=== PATIENT | male | born 1940 | race Caucasian/White ===

== ENCOUNTER 2017-08-27 00:08 | Inpatient (IN) | payer OTHER, MEDICARE, MEDICAID ==
[2017-08-27] VITALS (7 sets, daily range): BP systolic 131–167; BP diastolic 87–104
[~2017-08-27] VITALS: Ht 5535.5 cm; Wt 79.0 kg
[~2017-08-27 00:08] MED LIST: ASPI-1265 PO; FLO0.4C PO; LOP25T PO; LOSA25TA96 PO; POLY17PO10 PO
[2017-08-27 00:43] LABS: BASOPHILS # (AUTO) 0.1 X10'3 (0-0.2); BASOPHILS % (AUTO) 0.5 % (0-1); EOSINOPHILS # (AUTO) 0.3 X10'3 (0-0.9); EOSINOPHILS % (AUTO) 2.8 % (0-6); HEMATOCRIT 41.9 % (42.0-52.0); LYMPHOCYTES # (AUTO) 5.7 X10'3 (1.1-4.8); LYMPHOCYTES % (AUTO) 56.3 % (21-51); MEAN CORPUSCULAR HEMOGLOBIN 31.1 PG (27.0-31.0); MEAN CORPUSCULAR HGB CONC 33.5 % (33.0-36.5); MEAN PLATELET VOLUME 8.4 FL (7.4-10.4); MONOCYTES # (AUTO) 0.9 X10'3 (0-0.9); MONOCYTES % (AUTO) 8.5 % (2-12); NEUTROPHILS # (AUTO) 3.2 X10'3 (1.8-7.7); NEUTROPHILS % (AUTO) 31.9 % (42-75); PLATELET COUNT 206 X10'3 (140-440); RED CELL DISTRIBUTION WIDTH 14.8 % (11.5-14.5); WHITE BLOOD COUNT 10.1 X10'3 (4.5-11.0)
[2017-08-27 00:59] LABS: ALANINE AMINOTRANSFERASE 37 U/L (12-78); ALBUMIN 3.7 G/DL (3.4-5.0); ALKALINE PHOSPHATASE 74 IU/L (46-116); ANION GAP 5 (8-16); ASPARTATE AMINO TRANSFERASE 21 U/L (10-37); BILIRUBIN,TOTAL 0.6 MG/DL (0.1-1.0); BLOOD UREA NITROGEN 10 MG/DL (7-18); CALCIUM 8.9 MG/DL (8.5-10.1); CHLORIDE 103 MMOL/L (99-107); ETHANOL < 0.010 GM/DL (0.0-0.010); GLUCOSE 98 MG/DL (70-104); MAGNESIUM 1.7 MG/DL (1.5-2.4); POTASSIUM 4.2 MMOL/L (3.5-5.1); SODIUM 136 MMOL/L (135-145); TOTAL CARBON DIOXIDE 28.1 MMOL/L (24-32); TOTAL PROTEIN 7.3 G/DL (6.4-8.2); eGFR 73 ML/MIN
[2017-08-27] MEDS ORDERED: iohexol 350MG/ML 100ml bottle IV ONE (00:59)
[2017-08-27 01:03] LABS: PARTIAL THROMBOPLASTIN TIME 26 SECONDS (22-32)
[2017-08-27] MEDS ORDERED: acetaminophen 325mg tablet PO PRN (03:10)
[2017-08-27] MEDS ORDERED: diphenhydrAMINE 25mg capsule PO PRN (03:10)
[2017-08-27] MEDS ORDERED: mag hydrox/Alum hydrox/simeth 30ml oral suspension PO PRN (03:10)
[2017-08-27] MEDS ORDERED: ondansetron/PF 4mg/2ml inj IV PRN (03:10)
[2017-08-27] MEDS ORDERED: metoclopramide 5 mg/ml inj IV PRN (03:10)
[2017-08-27] MEDS ORDERED: magnesium hydroxide 30ml (MOM) UD suspension PO PRN (03:10)
[2017-08-27] MEDS ORDERED: diphenhydrAMINE 50 mg/ml inj IV PRN (03:10)
[2017-08-27] MEDS ORDERED: bisacodyl 10mg suppository rectal RC PRN (03:10)
[2017-08-27] MEDS ORDERED: HYDROcodone/acetaminophen 5mg/325mg tablet PO PRN (03:10)
[2017-08-27] MEDS ORDERED: HYDROcodone/acetaminophen 10/325mg tab PO PRN (03:10)
[2017-08-27] MEDS: normal saline 1000ml 1,000 ML IV SCH (03:25)
[2017-08-27 03:56] LABS: CLARITY,URINE CLEAR (Clear); COLOR,URINE YELLOW (Yellow); GLUCOSE, URINE NEGATIVE (Neg); KETONES,URINE NEGATIVE (Neg); LEUKOCYTE ESTERASE ,URINE NEGATIVE (Neg); NITRITES, URINE NEGATIVE (Neg); OCCULT BLOOD,URINE NEGATIVE (Neg); PROTEIN,URINE NEGATIVE (Neg); UROBILINOGEN,URINE 0.2 E.U/dL (0.2-1.0)
[2017-08-27 04:07] LABS: UA COLLECTION TYPE STRAIGHT CATH; URINE AMPHETAMINE SCREEN NEGATIVE (Neg); URINE BARBITUATE SCREEN NEGATIVE (Neg); URINE BENZODIAZEPINES SCREEN NEGATIVE (Neg); URINE CANNABINOID SCREEN NEGATIVE (Neg); URINE COCAINE SCREEN NEGATIVE (Neg); URINE METHADONE SCREEN NEGATIVE (Neg); URINE OPIATE SCREEN NEGATIVE (Neg); URINE PHENCYCLIDINE SCREEN NEGATIVE (Neg)
[2017-08-27] MEDS ORDERED: pantoprazole 40mg Tablet.DR PO SCH (07:30)
[2017-08-27] MEDS: docusate sod 100mg capsule PO SCH ×2 (08:00→20:00)
[2017-08-27] MEDS: atorvastatin 10mg tablet PO SCH (08:00)
[2017-08-27] MEDS ORDERED: heparin, porcine 5000 units/ml vial SQ SCH ×2 (08:00→20:00)
[2017-08-27] MEDS: aspirin 81mg tab.chew PO SCH (08:00)
[2017-08-27] MEDS: tamsulosin 0.4mg capsule PO SCH (08:00)
[2017-08-27] MEDS ORDERED: OMEP20CA10 PO ×2 (11:00→11:09)
[2017-08-27] MEDS ORDERED: CEPH500C2 PO (11:00)
[2017-08-27] MEDS ORDERED: FINA5TAB11 PO (11:00)
[2017-08-27] MEDS ORDERED: LOSA25TA96 PO (11:01)
[2017-08-27] MEDS ORDERED: IPRA30SP (11:09)
[2017-08-27] MEDS ORDERED: FAMO-128 PO (11:09)
[2017-08-27] MEDS ORDERED: BUDE10.2 INH (11:09)
[2017-08-27] MEDS ORDERED: METO25TA6 PO (11:09)
[2017-08-27] MEDS ORDERED: LOSA100T28 PO (11:09)
[2017-08-27] MEDS: albuterol 2.5 MG/3 ML nebule NEB PRN (12:48)
[2017-08-27] MEDS ORDERED: ipratropium 0.03% 30ML nasal spray NS PRN (12:50)
[2017-08-27] MEDS: heparin, porcine 5000 units/ml vial SQ SCH ×2 (13:50→20:34)
[2017-08-27] MEDS ORDERED: metoprolol tartrate 25mg tablet PO SCH ×2 (16:25→20:00)
[2017-08-27] MEDS: cloNIDine 0.1 MG/24 HOUR patch (7 day patch) TD SCH (17:42)
[2017-08-27 17:43] LABS: CLARITY,URINE Clear (Clear); COLOR,URINE Yellow (Yellow); GLUCOSE, URINE Negative (Neg); KETONES,URINE >=160 mg/dl (Neg); LEUKOCYTE ESTERASE ,URINE Moderate (Neg); NITRITES, URINE Negative (Neg); OCCULT BLOOD,URINE Large (Neg); PH,URINE 5.5 (4.8-8.0); PROTEIN,URINE 30 mg/dl (Neg)
[2017-08-27 17:52] LABS: UA COLLECTION TYPE FOLEY CATH
[2017-08-27 17:53] LABS: WBC,URINE 20-30 /HPF (0-4)
[2017-08-27 17:54] LABS: BACTERIA,URINE 1+ /HPF (Neg); RBC,URINE 20-50 /HPF (0-2)
[2017-08-27 17:56] LABS: MUCUS STRANDS NONE SEEN /LPF (Neg); SQUAMOUS EPITHELIAL CELL,UR NONE SEEN /LPF (FEW)
[2017-08-27] MEDS ORDERED: temazepam 15mg capsule PO PRN (21:00)
[2017-08-28] VITALS (10 sets, daily range): BP systolic 134–187; BP diastolic 77–150
[2017-08-28] MEDS ORDERED: normal saline 500ml IV soln 500 ML IV ONE (01:20)
[2017-08-28] MEDS: acetaminophen 650mg rectal suppository RC PRN ×2 (01:20→09:36)
[2017-08-28] MEDS ORDERED: diltiazem 5mg/ml 5ml inj. IV ONE ×2 (01:45→02:30)
[2017-08-28] MEDS: normal saline 1000ml 1,000 ML IV SCH ×2 (03:39→15:07)
[2017-08-28 06:33] LABS: BASOPHILS # (AUTO) 0.1 X10'3 (0-0.2); BASOPHILS % (AUTO) 0.7 % (0-1); EOSINOPHILS # (AUTO) 0.1 X10'3 (0-0.9); EOSINOPHILS % (AUTO) 0.9 % (0-6); HEMATOCRIT 40.4 % (42.0-52.0); HEMOGLOBIN 13.6 g/dl (14.0-17.9); LYMPHOCYTES # (AUTO) 2.8 X10'3 (1.1-4.8); MEAN CORPUSCULAR HEMOGLOBIN 31.2 PG (27.0-31.0); MEAN CORPUSCULAR HGB CONC 33.6 % (33.0-36.5); MEAN CORPUSCULAR VOLUME 92.7 FL (78-98); MEAN PLATELET VOLUME 9.3 FL (7.4-10.4); MONOCYTES # (AUTO) 1.4 X10'3 (0-0.9); MONOCYTES % (AUTO) 9.2 % (2-12); NEUTROPHILS % (AUTO) 71.2 % (42-75); PLATELET COUNT 210 X10'3 (140-440); RED BLOOD COUNT 4.35 X10'6 (4.70-6.10); RED CELL DISTRIBUTION WIDTH 14.2 % (11.5-14.5); WHITE BLOOD COUNT 15.4 X10'3 (4.5-11.0)
[2017-08-28 06:54] LABS: ALANINE AMINOTRANSFERASE 35 U/L (12-78); ALBUMIN 3.6 G/DL (3.4-5.0); ALKALINE PHOSPHATASE 69 IU/L (46-116); ANION GAP 12 (8-16); ASPARTATE AMINO TRANSFERASE 22 U/L (10-37); BILIRUBIN,TOTAL 1.4 MG/DL (0.1-1.0); BLOOD UREA NITROGEN 6 MG/DL (7-18); BUN/CREATININE RATIO 6.2 (5.4-32.0); CHLORIDE 101 MMOL/L (99-107); CHOL/HDL RATIO 2.2 (0.00-4.99); CHOLESTEROL 150 MG/DL (0-200); CREATININE 0.97 MG/DL (0.60-1.10); GLUCOSE 128 MG/DL (70-104); HDL CHOLESTEROL 68 MG/DL (35-60); LDL CHOLESTEROL 82 MG/DL (50-100); POTASSIUM 4.2 MMOL/L (3.5-5.1); SODIUM 137 MMOL/L (135-145); TOTAL CARBON DIOXIDE 24.3 MMOL/L (24-32); TOTAL PROTEIN 7.1 G/DL (6.4-8.2); TRIGLYCERIDES 63 MG/DL (20-135); eGFR 75 ML/MIN
[2017-08-28] MEDS: pantoprazole 40mg Tablet.DR PO SCH (07:30)
[2017-08-28] MEDS: lactobacillus rhamnosus 10,000 MMU CELLS/CAPSULE PO SCH ×2 (07:30→17:30)
[2017-08-28] MEDS: fluticasone/vilanterol 200mcg/25mcg inhaler IH SCH ×2 (07:56→08:02)
[2017-08-28] MEDS: finasteride 5mg tablet PO SCH (08:00)
[2017-08-28] MEDS: aspirin 81mg tab.chew PO SCH (08:00)
[2017-08-28] MEDS: metoprolol tartrate 25mg tablet PO SCH ×2 (08:00→19:08)
[2017-08-28] MEDS: losartan 50mg tablet PO SCH (08:00)
[2017-08-28] MEDS: tamsulosin 0.4mg capsule PO SCH (08:00)
[2017-08-28] MEDS: docusate sod 100mg capsule PO SCH ×2 (08:00→19:08)
[2017-08-28] MEDS: atorvastatin 10mg tablet PO SCH (08:00)
[2017-08-28] MEDS: heparin, porcine 5000 units/ml vial SQ SCH ×2 (08:10→20:11)
[2017-08-28] MEDS: cefTRIAXone 1g/NS 100ml IVPB 100 ML IV SCH (08:10)
[2017-08-28] MEDS ORDERED: LORazepam 2 mg/ml vial IM ONE (16:05)
[2017-08-28] MEDS ORDERED: LORazepam 2 mg/ml vial IV ONE (16:30)
[2017-08-28] MEDS ORDERED: metoprolol tartrate 1mg/ml inj IV ONE (16:40)
[2017-08-28] MEDS: aspirin 300mg supp.rect RC SCH (20:11)
[2017-08-28] MEDS: ciprofloxacin lact 400MG/200ML 200 ML IV SCH (20:11)
[2017-08-29 02:02] VITALS: BP 167/97
[2017-08-29 06:00] VITALS: BP 142/90
[2017-08-29 06:41] LABS: BASOPHILS % (AUTO) 0.4 % (0-1); EOSINOPHILS # (AUTO) 0.2 X10'3 (0-0.9); HEMATOCRIT 36.9 % (42.0-52.0); HEMOGLOBIN 12.7 g/dl (14.0-17.9); LYMPHOCYTES # (AUTO) 2.9 X10'3 (1.1-4.8); MEAN CORPUSCULAR HEMOGLOBIN 31.3 PG (27.0-31.0); MEAN CORPUSCULAR HGB CONC 34.4 % (33.0-36.5); MEAN PLATELET VOLUME 8.9 FL (7.4-10.4); MONOCYTES # (AUTO) 1.1 X10'3 (0-0.9); NEUTROPHILS % (AUTO) 61.6 % (42-75); PLATELET COUNT 177 X10'3 (140-440); RED BLOOD COUNT 4.05 X10'6 (4.70-6.10); RED CELL DISTRIBUTION WIDTH 14.3 % (11.5-14.5); WHITE BLOOD COUNT 11.3 X10'3 (4.5-11.0)
[2017-08-29 06:54] LABS: ANION GAP 10 (8-16); CHLORIDE 100 MMOL/L (99-107); GLUCOSE 103 MG/DL (70-104); POTASSIUM 3.9 MMOL/L (3.5-5.1); SODIUM 133 MMOL/L (135-145); TOTAL CARBON DIOXIDE 22.6 MMOL/L (24-32)
[2017-08-29 06:55] LABS: ALANINE AMINOTRANSFERASE 32 U/L (12-78); ALBUMIN 3.1 G/DL (3.4-5.0); ALBUMIN/GLOBULIN RATIO 0.9 (1.1-1.5); ALKALINE PHOSPHATASE 62 IU/L (46-116); ASPARTATE AMINO TRANSFERASE 26 U/L (10-37); BILIRUBIN,TOTAL 0.8 MG/DL (0.1-1.0); BLOOD UREA NITROGEN 6 MG/DL (7-18); CALCIUM 8.7 MG/DL (8.5-10.1); CREATININE 0.75 MG/DL (0.60-1.10); TOTAL PROTEIN 6.6 G/DL (6.4-8.2); eGFR > 90 ML/MIN
[2017-08-29] MEDS: pantoprazole 40mg Tablet.DR PO SCH (07:10)
[2017-08-29] MEDS: lactobacillus rhamnosus 10,000 MMU CELLS/CAPSULE PO SCH ×2 (07:10→16:37)
[2017-08-29] MEDS: metoprolol tartrate 25mg tablet PO SCH ×2 (07:11→20:00)
[2017-08-29] MEDS: losartan 50mg tablet PO SCH (07:11)
[2017-08-29] MEDS: atorvastatin 10mg tablet PO SCH (07:11)
[2017-08-29] MEDS: docusate sod 100mg capsule PO SCH ×2 (07:11→20:00)
[2017-08-29] MEDS: tamsulosin 0.4mg capsule PO SCH (07:11)
[2017-08-29] MEDS: finasteride 5mg tablet PO SCH (07:11)
[2017-08-29] MEDS: cefTRIAXone 1g/NS 100ml IVPB 100 ML IV SCH (07:17)
[2017-08-29] MEDS: fluticasone/vilanterol 200mcg/25mcg inhaler IH SCH (08:00)
[2017-08-29] MEDS: ciprofloxacin lact 400MG/200ML 200 ML IV SCH ×2 (08:12→21:36)
[2017-08-29] MEDS: heparin, porcine 5000 units/ml vial SQ SCH ×2 (08:15→20:00)
[2017-08-29] MEDS: aspirin 300mg supp.rect RC SCH (08:16)
[2017-08-29] MEDS: normal saline 1000ml 1,000 ML IV SCH ×2 (08:21→17:33)
[2017-08-29 10:00] VITALS: BP 160/90
[2017-08-29 18:00] VITALS: BP 177/100
[2017-08-30 04:00] VITALS: BP 153/93
[2017-08-30 05:23] LABS: BASOPHILS # (AUTO) 0.1 X10'3 (0-0.2); BASOPHILS % (AUTO) 0.5 % (0-1); EOSINOPHILS # (AUTO) 0.2 X10'3 (0-0.9); HEMATOCRIT 37.1 % (42.0-52.0); HEMOGLOBIN 12.4 g/dl (14.0-17.9); LYMPHOCYTES # (AUTO) 2.2 X10'3 (1.1-4.8); LYMPHOCYTES % (AUTO) 18.7 % (21-51); MEAN CORPUSCULAR HEMOGLOBIN 30.9 PG (27.0-31.0); MEAN CORPUSCULAR HGB CONC 33.6 % (33.0-36.5); MEAN PLATELET VOLUME 8.8 FL (7.4-10.4); MONOCYTES # (AUTO) 1.2 X10'3 (0-0.9); MONOCYTES % (AUTO) 10.1 % (2-12); NEUTROPHILS # (AUTO) 7.9 X10'3 (1.8-7.7); NEUTROPHILS % (AUTO) 68.7 % (42-75); PLATELET COUNT 187 X10'3 (140-440); RED BLOOD COUNT 4.03 X10'6 (4.70-6.10); RED CELL DISTRIBUTION WIDTH 13.6 % (11.5-14.5); WHITE BLOOD COUNT 11.6 X10'3 (4.5-11.0)
[2017-08-30 05:56] LABS: ALANINE AMINOTRANSFERASE 30 U/L (12-78); ALBUMIN 2.9 G/DL (3.4-5.0); ALBUMIN/GLOBULIN RATIO 0.8 (1.1-1.5); ALKALINE PHOSPHATASE 64 IU/L (46-116); ANION GAP 12 (8-16); ASPARTATE AMINO TRANSFERASE 21 U/L (10-37); BILIRUBIN,TOTAL 0.7 MG/DL (0.1-1.0); BLOOD UREA NITROGEN 6 MG/DL (7-18); CALCIUM 8.4 MG/DL (8.5-10.1); CHLORIDE 95 MMOL/L (99-107); CREATININE 0.67 MG/DL (0.60-1.10); GLUCOSE 109 MG/DL (70-104); POTASSIUM 3.7 MMOL/L (3.5-5.1); SODIUM 128 MMOL/L (135-145); TOTAL CARBON DIOXIDE 20.6 MMOL/L (24-32); TOTAL PROTEIN 6.6 G/DL (6.4-8.2); eGFR > 90 ML/MIN
[2017-08-30 06:00] VITALS: BP 153/93
[2017-08-30] MEDS: normal saline 1000ml 1,000 ML IV SCH ×2 (06:06→20:45)
[2017-08-30] MEDS: ciprofloxacin lact 400MG/200ML 200 ML IV SCH ×2 (08:49→20:45)
[2017-08-30] MEDS: cefTRIAXone 1g/NS 100ml IVPB 100 ML IV SCH (08:49)
[2017-08-30] MEDS: aspirin 300mg supp.rect RC SCH (08:49)
[2017-08-30] MEDS: heparin, porcine 5000 units/ml vial SQ SCH ×2 (08:50→20:46)
[2017-08-30] MEDS: fluticasone/vilanterol 200mcg/25mcg inhaler IH SCH (09:01)
[2017-08-30] MEDS: albuterol 2.5 MG/3 ML nebule NEB PRN (09:03)
[2017-08-30 11:00] VITALS: BP 154/91
[2017-08-30] MEDS: lactobacillus rhamnosus 10,000 MMU CELLS/CAPSULE PO SCH ×2 (11:35→16:26)
[2017-08-30] MEDS: losartan 50mg tablet PO SCH (11:35)
[2017-08-30] MEDS: docusate sod 100mg capsule PO SCH ×2 (11:35→20:00)
[2017-08-30] MEDS: atorvastatin 10mg tablet PO SCH (11:36)
[2017-08-30] MEDS: tamsulosin 0.4mg capsule PO SCH (11:36)
[2017-08-30] MEDS: finasteride 5mg tablet PO SCH (11:38)
[2017-08-30] MEDS: metoprolol tartrate 25mg tablet PO SCH ×2 (11:47→20:00)
[2017-08-30] MEDS ORDERED: LORazepam 2 mg/ml vial IV ONE (14:00)
[2017-08-30 18:00] VITALS: BP 181/118
[2017-08-30] MEDS ORDERED: ALPRAZolam 0.25mg tablet PO PRN (20:35)
[2017-08-30 22:00] VITALS: BP 137/83
[2017-08-31 02:00] VITALS: BP 164/99
[2017-08-31 06:00] VITALS: BP 163/98
[2017-08-31] MEDS: lactobacillus rhamnosus 10,000 MMU CELLS/CAPSULE PO SCH ×2 (07:30→17:00)
[2017-08-31] MEDS: fluticasone/vilanterol 200mcg/25mcg inhaler IH SCH (08:00)
[2017-08-31] MEDS: heparin, porcine 5000 units/ml vial SQ SCH ×2 (08:00→20:00)
[2017-08-31] MEDS: finasteride 5mg tablet PO SCH (08:00)
[2017-08-31] MEDS: tamsulosin 0.4mg capsule PO SCH (08:00)
[2017-08-31] MEDS: aspirin 300mg supp.rect RC SCH (08:00)
[2017-08-31] MEDS: docusate sod 100mg capsule PO SCH ×2 (08:00→20:00)
[2017-08-31] MEDS ORDERED: pantoprazole 40 MG vial IV SCH (08:00)
[2017-08-31] MEDS: metoprolol tartrate 25mg tablet PO SCH ×2 (08:00→20:00)
[2017-08-31] MEDS: ciprofloxacin lact 400MG/200ML 200 ML IV SCH ×2 (08:00→20:00)
[2017-08-31] MEDS: atorvastatin 10mg tablet PO SCH (08:00)
[2017-08-31] MEDS: cefTRIAXone 1g/NS 100ml IVPB 100 ML IV SCH (08:00)
[2017-08-31] MEDS: losartan 50mg tablet PO SCH (08:00)
[2017-08-31 08:31] LABS: BASOPHILS # (AUTO) 0.1 X10'3 (0-0.2); BASOPHILS % (AUTO) 0.5 % (0-1); EOSINOPHILS # (AUTO) 0.2 X10'3 (0-0.9); EOSINOPHILS % (AUTO) 2.1 % (0-6); HEMATOCRIT 38.6 % (42.0-52.0); HEMOGLOBIN 13.1 g/dl (14.0-17.9); LYMPHOCYTES # (AUTO) 2.6 X10'3 (1.1-4.8); MEAN CORPUSCULAR HEMOGLOBIN 31.2 PG (27.0-31.0); MEAN CORPUSCULAR VOLUME 91.6 FL (78-98); MEAN PLATELET VOLUME 9.2 FL (7.4-10.4); MONOCYTES # (AUTO) 1.2 X10'3 (0-0.9); MONOCYTES % (AUTO) 10.7 % (2-12); NEUTROPHILS # (AUTO) 6.8 X10'3 (1.8-7.7); NEUTROPHILS % (AUTO) 62.7 % (42-75); PLATELET COUNT 247 X10'3 (140-440); RED BLOOD COUNT 4.21 X10'6 (4.70-6.10); RED CELL DISTRIBUTION WIDTH 13.5 % (11.5-14.5); WHITE BLOOD COUNT 10.8 X10'3 (4.5-11.0)
[2017-08-31 08:37] LABS: ALANINE AMINOTRANSFERASE 37 U/L (12-78); ALBUMIN 3.1 G/DL (3.4-5.0); ALBUMIN/GLOBULIN RATIO 0.8 (1.1-1.5); ALKALINE PHOSPHATASE 71 IU/L (46-116); ANION GAP 13 (8-16); ASPARTATE AMINO TRANSFERASE 21 U/L (10-37); BILIRUBIN,TOTAL 0.7 MG/DL (0.1-1.0); BLOOD UREA NITROGEN 6 MG/DL (7-18); BUN/CREATININE RATIO 7.8 (5.4-32.0); CALCIUM 8.9 MG/DL (8.5-10.1); CHLORIDE 93 MMOL/L (99-107); CREATININE 0.77 MG/DL (0.60-1.10); GLUCOSE 109 MG/DL (70-104); POTASSIUM 3.8 MMOL/L (3.5-5.1); SODIUM 128 MMOL/L (135-145); TOTAL CARBON DIOXIDE 22.5 MMOL/L (24-32); TOTAL PROTEIN 7.2 G/DL (6.4-8.2); eGFR > 90 ML/MIN
[2017-08-31] MEDS ORDERED: OLANZapine 5mg rapidly disint. tablet PO ONE (09:05)
[2017-08-31] MEDS: normal saline 1000ml 1,000 ML IV SCH (11:26)
[2017-08-31] MEDS ORDERED: OLANZapine **IM** 10 mg inj. IM ONE (11:45)
[2017-08-31] MEDS ORDERED: LORazepam 2 mg/ml vial IM PRN (17:40)
[2017-08-31 19:00] VITALS: BP 95/64
[2017-09-01] MEDS: normal saline 1000ml 1,000 ML IV SCH (00:46)
[2017-09-01 06:12] LABS: BASOPHILS % (AUTO) 0.1 % (0-1); EOSINOPHILS # (AUTO) 0.2 X10'3 (0-0.9); EOSINOPHILS % (AUTO) 1.7 % (0-6); HEMATOCRIT 42.1 % (42.0-52.0); HEMOGLOBIN 14.1 g/dl (14.0-17.9); LYMPHOCYTES # (AUTO) 2.1 X10'3 (1.1-4.8); LYMPHOCYTES % (AUTO) 20.3 % (21-51); MEAN CORPUSCULAR HEMOGLOBIN 30.8 PG (27.0-31.0); MEAN CORPUSCULAR HGB CONC 33.6 % (33.0-36.5); MEAN CORPUSCULAR VOLUME 91.8 FL (78-98); MEAN PLATELET VOLUME 7.8 FL (7.4-10.4); MONOCYTES # (AUTO) 1.2 X10'3 (0-0.9); MONOCYTES % (AUTO) 11.6 % (2-12); NEUTROPHILS # (AUTO) 6.9 X10'3 (1.8-7.7); NEUTROPHILS % (AUTO) 66.3 % (42-75); PLATELET COUNT 254 X10'3 (140-440); RED BLOOD COUNT 4.58 X10'6 (4.70-6.10); RED CELL DISTRIBUTION WIDTH 13.7 % (11.5-14.5); WHITE BLOOD COUNT 10.3 X10'3 (4.5-11.0)
[2017-09-01 06:54] LABS: ALANINE AMINOTRANSFERASE 42 U/L (12-78); ALBUMIN 3.2 G/DL (3.4-5.0); ALBUMIN/GLOBULIN RATIO 0.8 (1.1-1.5); ALKALINE PHOSPHATASE 72 IU/L (46-116); ANION GAP 15 (8-16); ASPARTATE AMINO TRANSFERASE 23 U/L (10-37); BILIRUBIN,TOTAL 0.7 MG/DL (0.1-1.0); BLOOD UREA NITROGEN 10 MG/DL (7-18); BUN/CREATININE RATIO 10.5 (5.4-32.0); CALCIUM 9.4 MG/DL (8.5-10.1); CHLORIDE 97 MMOL/L (99-107); CREATININE 0.95 MG/DL (0.60-1.10); GLUCOSE 105 MG/DL (70-104); POTASSIUM 3.9 MMOL/L (3.5-5.1); SODIUM 133 MMOL/L (135-145); TOTAL CARBON DIOXIDE 21.5 MMOL/L (24-32); TOTAL PROTEIN 7.4 G/DL (6.4-8.2); eGFR 77 ML/MIN
[2017-09-01 10:00] VITALS: BP 100/53
[2017-09-01] MEDS: LORazepam 2 mg/ml vial IV PRN (15:59)
[2017-09-01 17:00] VITALS: BP 103/52
[2017-09-01 22:00] VITALS: BP 124/71
[2017-09-01 23:00] VITALS: BP 103/87
[2017-09-02] MEDS: aspirin 300mg supp.rect RC SCH ×2 (08:00→13:23)
[2017-09-02 10:00] VITALS: BP 117/67
[2017-09-02] MEDS: normal saline 1000ml 1,000 ML IV SCH (13:23)
[2017-09-02] MEDS: LORazepam 2 mg/ml vial IV PRN (17:00)
[2017-09-02] MEDS ORDERED: levetiracetam 250mg tablet PO SCH (20:00)
[2017-09-02 22:00] VITALS: BP 130/88
[2017-09-03] MEDS: normal saline 1000ml 1,000 ML IV SCH ×3 (02:29→21:53)
[2017-09-03 06:00] VITALS: BP 122/63
[2017-09-03 10:00] VITALS: BP 125/80
[2017-09-03] MEDS: aspirin 300mg supp.rect RC SCH (10:27)
[2017-09-03] MEDS: levetiracetam inj 500 MG in normal saline 100ml IV soln 95 ML IV SCH ×2 (11:44→21:51)
[2017-09-03] MEDS: cloNIDine 0.1 MG/24 HOUR patch (7 day patch) TD SCH (21:52)
[2017-09-04] MEDS: levetiracetam inj 500 MG in normal saline 100ml IV soln 95 ML IV SCH ×2 (08:56→20:55)
[2017-09-04] MEDS: LORazepam 2 mg/ml vial IV PRN (09:00)
[2017-09-04] MEDS: aspirin 300mg supp.rect RC SCH (09:02)
[2017-09-04 10:00] VITALS: BP 136/80
[2017-09-04] MEDS: normal saline 1000ml 1,000 ML IV SCH (21:05)
[2017-09-04 22:00] VITALS: BP 145/82
[2017-09-05] MEDS: normal saline 1000ml 1,000 ML IV SCH ×2 (07:45→13:07)
[2017-09-05] MEDS: levetiracetam inj 500 MG in normal saline 100ml IV soln 95 ML IV SCH ×2 (07:51→20:02)
[2017-09-05] MEDS: aspirin 300mg supp.rect RC SCH (08:00)
[2017-09-05 10:00] VITALS: BP 121/82
[2017-09-05] MEDS: amox tr/potassium clavulanate 875/125mg TAB PO SCH (19:06)
[2017-09-05] MEDS: heparin, porcine 5000 units/ml vial SQ SCH (20:03)
[2017-09-05 22:10] VITALS: BP 145/94
[2017-09-06] MEDS ORDERED: ketorolac trometh. 30mg/ml inj. IV ONE
[2017-09-06] MEDS ORDERED: ketorolac tromethamine 15mg/ml inj. IV ONE (02:00)
[2017-09-06 06:00] VITALS: BP 138/106
[2017-09-06] MEDS: levetiracetam inj 500 MG in normal saline 100ml IV soln 95 ML IV SCH ×2 (08:00→08:26)
[2017-09-06] MEDS: aspirin 300mg supp.rect RC SCH (08:00)
[2017-09-06] MEDS: heparin, porcine 5000 units/ml vial SQ SCH (08:26)
[2017-09-06] MEDS: amox tr/potassium clavulanate 875/125mg TAB PO SCH ×2 (08:30→22:55)
[2017-09-06] MEDS: normal saline 1000ml 1,000 ML IV SCH (10:25)
[2017-09-06 10:30] VITALS: BP 158/95
[2017-09-06] MEDS ORDERED: morphine 10 MG/5 ML UD oral solution PO PRN (17:50)
[2017-09-06] MEDS ORDERED: LORazepam 2 mg/ml vial IV PRN (17:50)
[2017-09-06] MEDS: levetiracetam 250mg tablet PO SCH (20:00)
[2017-09-07 05:00] VITALS: BP 133/79
[2017-09-07] MEDS: aspirin 300mg supp.rect RC SCH (07:08)
[2017-09-07] MEDS: amox tr/potassium clavulanate 875/125mg TAB PO SCH (08:04)
[2017-09-07] MEDS: levetiracetam 250mg tablet PO SCH (08:04)
[2017-09-07 10:30] VITALS: BP 126/94
== END 2017-09-07 17:00 | DRG 871 ==
LOC: ER 00:09 → ED HOLD 03:06 → EDBEDREQ 03:42 → MED 3N 04:12 → ORTHO 4S 12:19
PROVIDERS: ADMIT Family Medicine; ATTEND Internal Medicine
PROC: B3251ZZ Computerized Tomography (CT Scan) of Bilateral Common Carotid Arteries using Low Osmolar Contrast (ICD-10-PCS; principal; 2017-08-27)
PROC: B32G1ZZ Computerized Tomography (CT Scan) of Bilateral Vertebral Arteries using Low Osmolar Contrast (ICD-10-PCS; 2017-08-27)
PROC: B3281ZZ Computerized Tomography (CT Scan) of Bilateral Internal Carotid Arteries using Low Osmolar Contrast (ICD-10-PCS; 2017-08-27)
DX: A41.9 Sepsis, unspecified organism (principal); G93.40 Encephalopathy, unspecified; I69.354 Hemiplegia and hemiparesis following cerebral infarction affecting left non-dominant side; G45.9 Transient cerebral ischemic attack, unspecified; N39.0 Urinary tract infection, site not specified; E87.1 Hypo-osmolality and hyponatremia; I10 Essential (primary) hypertension; I25.10 Atherosclerotic heart disease of native coronary artery without angina pectoris; M47.812 Spondylosis without myelopathy or radiculopathy, cervical region; B95.2 Enterococcus as the cause of diseases classified elsewhere; R55 Syncope and collapse; G89.29 Other chronic pain; M54.9 Dorsalgia, unspecified; Z66 Do not resuscitate; Z51.5 Encounter for palliative care; Z90.49 Acquired absence of other specified parts of digestive tract; Z95.1 Presence of aortocoronary bypass graft; Z79.82 Long term (current) use of aspirin; Z79.899 Other long term (current) drug therapy
CPT/HCPCS: 36415; 70450; 70496; 70498; 70551; 71010; 80053; 80061; 80305; 80320; 81001; 81003; 83605; 83735; 83880; 84145; 84484; 85025; 85610; 85730; 87040; 87070; 87077; 87088; 87186; 92616; 93005; 93306; 93880; 94640; 94760; 95816; 97110; 97162; 97530; 99285; A4315; A4353; A6213; A6258; J0696; J0744; J1644; J1885; J1953; J2060; J2270; J3490; J7030; Q9967

== ENCOUNTER 2017-10-26 16:13 | Emergency (ER) | payer OTHER, MEDICARE, MEDICAID ==
[~2017-10-26] VITALS: Ht 167.6 cm; Wt 80.1 kg
[~2017-10-26 16:13] MED LIST changes: +BUDE10.2 INH; +CEPH500C2 PO; +FAMO-128 PO; +FINA5TAB11 PO; -FLO0.4C PO; +IPRA30SP; -LOP25T PO; +LOSA100T28 PO; -LOSA25TA96 PO; +METO25TA6 PO; +OMEP20CA10 PO; -POLY17PO10 PO
[2017-10-26] MEDS ORDERED: LIDOcaine 2% 10ml TOPICAL JELLY (Urojet) MM ONE (17:45)
[2017-10-26] MEDS ORDERED: LIDO30CR23 TP (20:12)
[2017-10-26 20:52] LABS: CLARITY,URINE Clear (Clear); COLOR,URINE Yellow (Yellow); GLUCOSE, URINE Negative (Neg); KETONES,URINE Trace mg/dl (Neg); LEUKOCYTE ESTERASE ,URINE Small (Neg); NITRITES, URINE Negative (Neg); OCCULT BLOOD,URINE Small (Neg); PH,URINE 5.5 (4.8-8.0); PROTEIN,URINE 30 mg/dl (Neg)
[2017-10-26 20:58] LABS: UA COLLECTION TYPE STRAIGHT CATH
[2017-10-26 21:01] LABS: BACTERIA,URINE FEW /HPF (Neg); WBC,URINE 0-4 /HPF (0-4)
[2017-10-26 21:02] LABS: SQUAMOUS EPITHELIAL CELL,UR NONE SEEN /LPF (FEW)
[2017-10-26 23:10] VITALS: BP 119/71
== END 2017-10-26 23:26 | disposition home or self-care (01) ==
LOC: ER 16:14
DX: R33.9 Retention of urine, unspecified (principal); I25.10 Atherosclerotic heart disease of native coronary artery without angina pectoris; I10 Essential (primary) hypertension; G89.29 Other chronic pain; Z86.73 Personal history of transient ischemic attack (TIA), and cerebral infarction without residual deficits; Z95.1 Presence of aortocoronary bypass graft; Z98.890 Other specified postprocedural states; Z79.82 Long term (current) use of aspirin; Z79.899 Other long term (current) drug therapy
CPT/HCPCS: 51702; 81001; 87088; 99284; A4315

== ENCOUNTER 2018-07-11 10:42 | Emergency (ER) | payer MEDICARE, MEDICAID, OTHER ==
[~2018-07-11] VITALS: Ht 157.5 cm; Wt 86.4 kg
[~2018-07-11 10:42] MED LIST changes: +LIDO30CR23 TP; +LOSA100T15 PO; -LOSA100T28 PO
[2018-07-11 11:11] VITALS: BP 158/91
== END 2018-07-11 12:11 | disposition home or self-care (01) ==
LOC: ER 10:42
DX: T83.038A Leakage of other urinary catheter, initial encounter (principal); I25.10 Atherosclerotic heart disease of native coronary artery without angina pectoris; I10 Essential (primary) hypertension; G89.29 Other chronic pain; M54.9 Dorsalgia, unspecified; Z86.73 Personal history of transient ischemic attack (TIA), and cerebral infarction without residual deficits; Z95.1 Presence of aortocoronary bypass graft; Z90.49 Acquired absence of other specified parts of digestive tract; Z79.82 Long term (current) use of aspirin
CPT/HCPCS: 99284